=== PATIENT | male | born 1955 | race Caucasian/White ===

== ENCOUNTER 2016-11-18 15:23 | Observation (INO) | payer MEDICARE ==
--- NOTE | ~2016-11-18 | DS ---
Discharge Summary [id number] [place]. [address] NAME: PANCHO STEINER : 57 STATUS : DIS Steve PAT#: [id number] AGE: 61 ADM/REG DATE : 11/18/16 MR#: [id number] REPORT SERV DATE: 11/20/16 DICTATED BY: PARRISH LINDA DATE: 11/19/16 REPORT STATUS : Draft TRANSCRIBED BY: MODL DATE: 11/19/16 ADMISSION DATE: 11/18/2016 DISCHARGE DATE: 11/19/2016 DISCHARGE DIAGNOSES: Include: 1. Acute right anterior maxillary fracture, nondisplaced status post fall. 2. Epistaxis, that has resolved. 3. Right shoulder pain. No acute fracture. 4. History of polymyalgia rheumatica. 5. History of anxiety. 6. History of coronary artery disease with stents. 7. History of hyperlipidemia. DISCHARGE MEDICATIONS: As follows: Tylenol 1000 mg 6 hours p.r.n., aspirin 81 mg three tablets at bedtime, Wellbutrin XL 300 mg daily, Plavix 75 mg daily, Augmentin 875 mg twice a day for six days, doxycycline 100 mg at bedtime, fenofibrate 160 mg daily, multivitamin one tablet daily, Protonix 40 mg daily, tramadol 100 mg daily, [place] 10/325 one tablet every six hours p.r.n., prednisone 5 mg daily, Crestor 40 mg at bedtime, Tylenol PM p.r.n. at bedtime, and [id number]-wdducit probiotic daily. HISTORY OF PRESENT ILLNESS: This is a very pleasant, 61-year-old white male, who presented after falling from the bed of his truck and striking the right side of his face. Please see initial H and P of Dr. Ciera Black, as patient admitted to the Hospitalist Service for further evaluation and treatment with consult to ENT Dr. Isael Oliver. PROCEDURES AND IMAGING DURING THIS ADMISSION: Include a CT of the face showing fracture of the right maxillary sinus. No evidence of a blowout fracture. CT of the brain showing negative for bleed, evidence for moderate amount of deep white matter ischemic injury. C- spine x-ray showing no fracture or dislocation otherwise but spondylitic changes, C5-C6 and C6-C7, and a right shoulder x-ray showing no fracture or dislocation. CONTINUATION OF HOSPITAL COURSE: The patient was admitted for observation with as stated consult placed to ENT Dr. Isael Oliver who evaluated the patient and did not feel like there was any need for any acute surgical need for his maxillary sinus fracture. The patient had remained stable from a blood pressure standpoint, has been afebrile. Orthostatics were checked which were within normal limits. He has been able to ambulate in the hallway. He underwent the above described imaging and in further discussion with the patient, he did state that he feels like his right knee may have given out which necessitated the fall. I did a full exam for stability of his knee, and it was within normal limits. He also stated that he took a blood pressure medicine called lisinopril/hydrochlorothiazide which he curiously had prescribed p.r.n., and he said that this blood pressure medicine would make pass out from time to time. 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 The patient was in agreement with this plan going forward. Discharge Summary [address] [address] NAME: PANCHO STEINER : 57 STATUS : DIS Steve PAT#: [id number] AGE: 61 ADM/REG DATE : 11/18/16 MR#: [id number] REPORT SERV DATE: 11/20/16 DICTATED BY: PARRISH LINDA DATE: 11/19/16 REPORT STATUS : Draft TRANSCRIBED BY: MODL DATE: 11/19/16 Questions were answered at bedside extensively, and primary care Dr. Kade Buckner. [facility] Parrish Linda NP / [id number] CC: Derek Porras Jr, MD Stanley Ireland, M.D.
--- NOTE | ~2016-11-18 | HP ---
History And Physical [address] [place]. [address] NAME: PANCHO STEINER : 57 STATUS : ADM Steve PAT#: [id number] AGE: 61 ADM/REG DATE : 11/18/16 MR#: [id number] REPORT SERV DATE: 11/18/16 DICTATED BY: CHRISTINA MORTON DATE: 11/18/16 REPORT STATUS : Draft TRANSCRIBED BY: RIDDHI DATE: 11/18/16 DATE OF ADMISSION: 11/18/2016 CHIEF COMPLAINT: Status post fall. HISTORY OF PRESENT ILLNESS: A 61-year-old male with a past medical history of non-ST elevation [place], status post CABG, being followed by Dr. Cedeno, also history of polymyalgia rheumatica, on chronic steroids, presented after falling out of his truck and landing on his right side of the face and right side of the body. The patient at that time was assisting with moving crown molding. He denied any lightheadedness or dizziness, but had extreme pain to the face and right shoulder with severe epistasis. After his fall, he presented to the [facility] ER, was seen by Dr. Rich Khan, who ordered a CT of the brain as well as a facial CT with findings of an acute right axillary fracture. ENT specialist, Dr. Oliver, was called and was recommended per ENT for the patient to start on empiric antibiotic to prevent infection. Also, currently at this time, the patient's epistasis has resolved without any recurrence. At this time, he denies any chest pain or shortness of breath, but states that his entire chest wall did hurt with the fall. Also, the patient had x-ray of his right shoulder which is currently pending at this time for severe right shoulder pain. For his pain, the patient did receive a dose of morphine per ER physician, which caused blood pressure to decrease to 97/57. According to the patient, the patient states that this happens occasionally whenever he receives morphine. The patient states that he felt that his knee gave out which caused him to fall out of the truck. REVIEW OF SYSTEMS: Please refer to HPI. PAST MEDICAL HISTORY: Hematemesis, hypertension, non-ST elevation [place], polymyalgia rheumatica. PAST SURGICAL HISTORY: CABG and back surgery. FAMILY HISTORY: Brain aneurysm. Mother with type 2 diabetes and hypertension. SOCIAL HISTORY: Former cigar smoker. Quit six months ago. No alcohol or illicit drugs. He usually is very ambulatory, does not use any assistive devices. ALLERGIES: AN ADVERSE REACTION TO PERCOCET CAUSES THE PATIENT BEING HYPERACTIVE AND DOES NOT SLEEP. HOME MEDICATIONS: Tylenol 1000 mg p.o. q.6 hours p.r.n., enteric-coated aspirin 324 mg p.o. q.h.s., Wellbutrin XL 300 mg p.o. daily, Plavix 75 mg p.o. daily, diphenhydramine with Tylenol one to two tabs p.o. q.h.s., doxycycline 100 mg p.o. q.h.s. terminal operator for PMR, fenofibrate 160 mg p.o. daily, [place] 10/325 one tab p.o. daily p.r.n., lisinopril/HCTZ 20/12.5 one tab p.o. daily p.r.n., multivitamin p.o. daily, Protonix 40 mg p.o. daily, prednisone 5 mg p.o. daily, Crestor 40 mg p.o. q.h.s., tramadol 100 mg p.o. daily. History And Physical [address] [address] NAME: PANCHO STEINER : 57 STATUS : ADM Steve PAT#: [id number] AGE: 61 ADM/REG DATE : 11/18/16 MR#: [id number] REPORT SERV DATE: 11/18/16 DICTATED BY: CHRISTINA MORTON DATE: 11/18/16 REPORT STATUS : Draft TRANSCRIBED BY: RIDDHI DATE: 11/18/16 PHYSICAL EXAMINATION: VITAL SIGNS: Temp of 98, initial blood pressure 129/91, currently at 91/69, pulse initially of 115, respiration of 20, saturating 97% on room air. GENERAL: The patient is alert and oriented x3, currently in no distress, but does have some pain from the face and right shoulder. HEENT: Pupils equal, reactive to light. Extraocular muscles are intact. Moist mucous membranes. NECK: Supple. RESPIRATORY: Clear to auscultation bilaterally. No wheezes or crackles. No signs of tachypnea. CARDIOVASCULAR: S1, S2. Regular rate and rhythm. Currently, no murmurs, rubs, or gallops. No JVD. SKIN: The patient with a laceration of the right frontal area which is sutured. ABDOMEN: Positive bowel sounds. Soft, nontender. No rebound. No fluid wave. No distention. EXTREMITIES: 2+ pulse bilaterally. Upper and lower, no edema. The patient with limited right upper extremity usage secondary to severe pain of the right shoulder. IMAGIN. CT of the brain without contrast, with no acute intracranial bleed, moderate amount of deep white matter ischemic injury. A CT of the facial bones with facial fracture that appears acute of the right maxillary area. 2. X-ray of the cervical spine with no fracture or dislocation seen. There are some spondylitic changes at C5-C6 and C6-C7. 3. X-ray of the right shoulder pending. LABORATORY DATA: Sodium 141, potassium 4.4 with a chloride of 106, bicarb of 24, BUN of 14, creatinine of 1.18 with a glucose of 99, calcium of 9.3. White count of 10.1 with a hemoglobin of 14.4, platelet count 292. INR of 1. ASSESSMENT AND PLAN: 1. Acute right maxillary fracture, status post fall. 2. Acute right shoulder pain status post fall. 3. Epistasis, resolved. 4. Hypotension, status post morphine in the ER. 5. History of polymyalgia rheumatica. 6. The patient will be admitted under observation with ENT followup/consult. Also Pain Management. Also, follow up with x-ray of the right shoulder. May have grade 2 CT of the shoulder. The patient also will be admitted to my colleague who will attend to this patient's care. ELAN/MODL Christina Morton M.D. History And Physical [address] [address] NAME: PANCHO STEINER : 57 STATUS : ADM Steve PAT#: [id number] AGE: 61 ADM/REG DATE : 11/18/16 MR#: [id number] REPORT SERV DATE: 11/18/16 DICTATED BY: CHRISTINA MORTON DATE: 11/18/16 REPORT STATUS : Draft TRANSCRIBED BY: RIDDHI DATE: 11/18/16 / [id number] CC: Derek Porras Jr, MD Stanley Ireland, M.D.
[~2016-11-18 15:23] MED LIST: ALEVE220 MG PO; ASA5GR PO; ASAB PO; BC POWDER PO; BRILINTA90 MG PO; CRESTOR40 MG PO; DIL2TAB PO; FISH OIL PO; IBU800 PO; ICY HOT OINTMENT TOP; KRILLOIL PO; LOFIBRA160 MG PO; LOP25 PO; MEVACOR40 MG PO; MONODOX100 MG PO; MULTIVITAMI1 PO; NORCO1 TA1 PO; NORCO1 TAB PO; P10; P10 PO; PLAVIX PO; PREV15 PO; PRILO PO; PRINZIDE1 TA1 PO; PROBIOTIC PO; PROTONIX PO; PROTONIXIV IV; SUCR PO; TUMS E-X750 M2 PO; ULTRAM50 PO; V5 PO; VIB100 PO; VITC500 PO; VOLTAREN1 % TOP; WELLXL300 PO; ZESTORETIC PO; ZOL50 PO; [UNRECOGNIZED DRUG - OTHER] PO
[2016-11-18 16:29] LABS: BASOPHILS 0.7 %; BASOPHILS ABSOLUTE 0.07 10/3/uL (0.0-0.16); EOSINOPHILS 1.6 %; EOSINOPHILS ABSOLUTE 0.16 10/3/uL (0.0-0.53); ER CBC TAT 0 Hrs 05 Mins; HEMATOCRIT 43.6 % (40.0-51.0); HEMOGLOBIN 14.4 g/dL (13.6-17.8); IMMATURE GRANULOCYTES 0.6 %; IMMATURE GRANULOCYTES ABSOLUTE 0.06 10/3/uL (0.0-0.11); LYMPHOCYTES 20.3 %; LYMPHOCYTES ABSOLUTE 2.05 10/3/uL (0.67-4.30); MEAN CORPUSCULAR HEMOGLOB 30.1 pg (26.0-34.0); MEAN CORPUSCULAR VOLUME 91.2 fL (80-100); MEAN PLATELET VOLUME 10.7 fL (9.2-13.0); MONOCYTES 7.3 %; MONOCYTES ABSOLUTE 0.74 10/3/uL (0.21-1.20); NEUTROPHILS 69.5 %; NEUTROPHILS ABSOLUTE 7.02 10/3/uL (2.02-8.40); RBC DISTRIBUTION WIDTH 13.6 % (12.0-16.0); RED CELL COUNT 4.78 10/6/uL (4.7-6.1); WHITE BLOOD CELLS 10.1 10/3/uL (4.5-10.5)
[2016-11-18 16:30] LABS: MANUAL DIFF NO %; PLATELET COUNT 292 10/3/uL (150-400)
[2016-11-18 16:36] LABS: PARTIAL THROMBO TIME 27.4 SEC (22.5-37.2); PROTIME (NOT ORD) 12.8 SEC (12.0-14.5)
[2016-11-18 16:41] LABS: BUN (BLOOD UREA NITROGEN) 14 MG/DL (6-23); CALCIUM, SERUM 9.3 MG/DL (8.5-10.4); CHLORIDE, SERUM 106 MMOL/L (96-112); CO2 (CARBON DIOXIDE) 24 MMOL/L (24-34); CREATININE 1.18 MG/DL (0.70-1.30); GFR AFRICAN AMERICAN 77 ML/MIN (>=60); GFR NON AFRICAN AMERICAN 67 ML/MIN (>=60); GLUCOSE, SERUM 99 MG/DL (60-99); POTASSIUM, SERUM 4.4 MMOL/L (3.5-5.3); SODIUM, SERUM 141 MMOL/L (135-148)
[2016-11-18] MEDS ORDERED: WELLXL300 PO (19:23)
[2016-11-18] MEDS ORDERED: MULTIVIT/MIN PO (19:23)
[2016-11-18] MEDS ORDERED: CRESTOR40 MG PO (19:24)
[2016-11-18] MEDS ORDERED: LOFIB160 PO (19:24)
[2016-11-18] MEDS ORDERED: PLAVIX PO (19:25)
[2016-11-18] MEDS ORDERED: HALF81 PO (19:25)
[2016-11-18] MEDS ORDERED: P5 PO (19:25)
[2016-11-18] MEDS ORDERED: MONODOX100 MG PO (19:25)
[2016-11-18] MEDS ORDERED: PRINZIDE1 TA1 PO (19:26)
[2016-11-18] MEDS ORDERED: NORCO1 TAB PO (19:26)
[2016-11-18] MEDS ORDERED: ACET500CAP PO (19:27)
[2016-11-18] MEDS ORDERED: ULTRAM50 PO (19:27)
[2016-11-18] MEDS ORDERED: PROTONIX PO (19:33)
[2016-11-18] MEDS ORDERED: TYLENOL PM PO (19:33)
[2016-11-19] MEDS ORDERED: PROBIOTIC (17:44)
[2016-11-19] MEDS ORDERED: KLONO5 PO (17:45)
[2016-11-19] MEDS ORDERED: AUG875 PO (17:46)
== END 2016-11-19 18:30 | disposition home or self-care (01) ==
LOC: ER 15:23 → CDU1 20:32
PROVIDERS: Physician Assistant
PROC: 0HQ1XZZ Repair Face Skin, External Approach (ICD-10-PCS; principal; 2016-11-18)
DX: S02.40CA Maxillary fracture, right side, initial encounter for closed fracture (principal); M35.3 Polymyalgia rheumatica; F41.9 Anxiety disorder, unspecified; I25.10 Atherosclerotic heart disease of native coronary artery without angina pectoris; I10 Essential (primary) hypertension; E78.5 Hyperlipidemia, unspecified; Z95.5 Presence of coronary angioplasty implant and graft; Z95.1 Presence of aortocoronary bypass graft; Z98.890 Other specified postprocedural states; Z83.3 Family history of diabetes mellitus; Z82.49 Family history of ischemic heart disease and other diseases of the circulatory system; Z87.891 Personal history of nicotine dependence; Z88.5 Allergy status to narcotic agent; Z79.82 Long term (current) use of aspirin; Z79.02 Long term (current) use of antithrombotics/antiplatelets; Z79.899 Other long term (current) drug therapy; Z79.2 Long term (current) use of antibiotics
CPT/HCPCS: 12013; G0378; 36415; 70450; 70486; 72040; 73030-RT; 80048; 85025; 85610; 85730; 86850; 86900; 86901; 90471; 90714; 93005; 96361; 96374; 96375; 99285; A9270-GY; J2405